=== PATIENT | male | born 1990 | race Caucasian/White ===

== ENCOUNTER 2019-07-06 07:09 | Outpatient (CLI) | payer OTHER | END 2019-07-06 07:10 | disposition short-term general hospital (02) | LOC: EMS 07:09 | PROVIDERS: ATTEND Surgery | DX: M79.662 Pain in left lower leg (principal); W01.0XXA Fall on same level from slipping, tripping and stumbling without subsequent striking against object, initial encounter; Y93.01 Activity, walking, marching and hiking; Y92.008 Other place in unspecified non-institutional (private) residence as the place of occurrence of the external cause | CPT/HCPCS: A0425; A0427 ==